=== PATIENT | female | born 1970 | race Caucasian/White ===

== ENCOUNTER 2017-03-11 08:07 | Emergency (ER) | payer OTHER ==
[~2017-03-11] VITALS: Ht 157.5 cm; Wt 65.0 kg
[2017-03-11] MEDS ORDERED: KETOROLAC TROMETHAMINE 30 MG/ML VIAL IVP ONE (08:45)
[2017-03-11] MEDS ORDERED: SODIUM CHLORIDE 0.9% 1,000 ML IV ONE (08:45)
[2017-03-11] MEDS ORDERED: BARIUM SULFATE 0.1% SUSPENSION 450 ML BOTTLE PO ONE (08:45)
[2017-03-11 09:06] LABS: BASOPHILS # (AUTO) 0.03 K/uL (0.00-0.20); BASOPHILS % (AUTO) 0.3 % (0.0-2.0); EOSINOPHILS # (AUTO) 0.11 K/uL (0.00-0.70); EOSINOPHILS % (AUTO) 0.94 % (1.0-6.0); HEMATOCRIT 39.4 % (36-46); HEMOGLOBIN 13.1 g/dL (12.0-16.0); LYMPHOCYTES # (AUTO) 1.6 K/uL (1.0-4.8); LYMPHOCYTES % (AUTO) 13.9 % (22.0-44.0); MEAN CORPUSCULAR HEMOGLOBIN 29.1 pg (26.0-34.0); MEAN CORPUSCULAR HGB CONC 33.2 G/dL (31.0-37.0); MEAN CORPUSCULAR VOLUME 88 fL (80-100); MONOCYTES # (AUTO) 0.9 K/uL (0.1-1.0); MONOCYTES % (AUTO) 8.3 % (2.0-9.0); NEUTROPHILS # (AUTO) 8.7 K/uL (1.8-7.7); NEUTROPHILS % (AUTO) 76.6 % (40.0-70.0); PLATELET COUNT (AUTO) 300 K/uL (150-450); RED CELL DISTRIBUTION WIDTH 14.1 % (11.5-14.5); WHITE BLOOD COUNT (AUTO) 11.3 K/uL (4.5-11.0)
[2017-03-11 09:13] LABS: APPEARANCE,URINE CLEAR (CLEAR); GLUCOSE, URINE (UA) NEGATIVE (NEGATIVE); KETONES,URINE NEGATIVE (NEGATIVE); LEUKOCYTE ESTERASE ,URINE TRACE (NEGATIVE); OCCULT BLOOD,URINE TRACE (NEGATIVE); PROTEIN,URINE NEGATIVE (NEGATIVE)
[2017-03-11 09:15] LABS: ADD UA MICROSCOPIC YES
[2017-03-11 09:18] LABS: CALCIUM, TOTAL 8.6 mg/dL (8.8-10.5); CREATININE 1.18 mg/dL (0.60-1.30); POTASSIUM 3.4 mmol/L (3.5-5.1)
[2017-03-11 09:19] LABS: RBC,URINE 0-2 /HPF (0-2); SQUAMOUS EPITHELIAL CELL,UR Few /LPF (None Seen); WBC,URINE 0-2 /HPF (0-5)
[2017-03-11 09:22] LABS: ALBUMIN 3.9 g/dL (3.4-5.0); TOTAL PROTEIN, SERUM 7.9 g/dL (6.4-8.2)
[2017-03-11] MEDS ORDERED: SODIUM CHLORIDE 0.9% 100 ML ONE (09:51)
[2017-03-11] MEDS ORDERED: IOVERSOL 320 MG/ML 100 ML VIAL ONE (09:51)
[2017-03-11 11:14] VITALS: BP 154/96
== END 2017-03-11 12:02 | disposition home or self-care (01) ==
LOC: EMS 08:09
DX: N20.9 Urinary calculus, unspecified (principal); N28.89 Other specified disorders of kidney and ureter
CPT/HCPCS: 36415; 74177; 80053; 81001; 83690; 84703; 85025; 96361; 96374; 99285; J1885; J7030; J7050; Q9967; Z7610

== ENCOUNTER 2017-06-15 13:11 | Emergency (ER) | payer OTHER ==
[~2017-06-15] VITALS: Ht 157.5 cm; Wt 60.0 kg
[2017-06-15] MEDS ORDERED: MAGN400T40 PO (13:20)
[2017-06-15] MEDS ORDERED: HYDR25TA PO (13:20)
[2017-06-15 14:54] LABS: BASOPHILS # (AUTO) 0.03 K/uL (0.00-0.20); BASOPHILS % (AUTO) 0.4 % (0.0-2.0); EOSINOPHILS # (AUTO) 0.21 K/uL (0.00-0.70); EOSINOPHILS % (AUTO) 2.91 % (1.0-6.0); HEMOGLOBIN 12.9 g/dL (12.0-16.0); LYMPHOCYTES # (AUTO) 1.9 K/uL (1.0-4.8); LYMPHOCYTES % (AUTO) 26.8 % (22.0-44.0); MEAN CORPUSCULAR HEMOGLOBIN 30.5 pg (26.0-34.0); MEAN CORPUSCULAR VOLUME 90 fL (80-100); MONOCYTES # (AUTO) 0.6 K/uL (0.1-1.0); MONOCYTES % (AUTO) 8.5 % (2.0-9.0); NEUTROPHILS # (AUTO) 4.5 K/uL (1.8-7.7); NEUTROPHILS % (AUTO) 61.5 % (40.0-70.0); PLATELET COUNT (AUTO) 388 K/uL (150-450); RED BLOOD CELL COUNT(AUTO) 4.24 MIL/uL (4.00-5.20); RED CELL DISTRIBUTION WIDTH 14.3 % (11.5-14.5); WHITE BLOOD COUNT (AUTO) 7.3 K/uL (4.5-11.0)
[2017-06-15 15:14] LABS: B-TYPE NATRIURETIC PEPTIDE 12 pg/mL (0-100)
[2017-06-15 15:16] LABS: ALANINE AMINOTRANSFERASE 32 U/L (12-78); ANION GAP 5 mmol/L (8-16); ASPARTATE AMINOTRANSFERASE 28 U/L (15-37); BILIRUBIN,TOTAL 0.4 mg/dL (0.1-1.0); CALCIUM, TOTAL 9.1 mg/dL (8.8-10.5); CARBON DIOXIDE 32 mmol/L (22-29); CHLORIDE 104 mmol/L (98-107); CREATINE KINASE, TOTAL 157 U/L (26-192); CREATININE 0.81 mg/dL (0.60-1.30); GLOMERULAR FILTR. RATE CALC > 60 mL/min (>60); SODIUM SERUM 141 mmol/L (136-145); UREA NITROGEN, BLOOD 10 mg/dL (7-18)
[2017-06-15 15:18] LABS: POTASSIUM 2.9 mmol/L (3.5-5.1)
[2017-06-15 15:39] LABS: APPEARANCE,URINE CLEAR (CLEAR); GLUCOSE, URINE (UA) NEGATIVE (NEGATIVE); KETONES,URINE NEGATIVE (NEGATIVE); LEUKOCYTE ESTERASE ,URINE NEGATIVE (NEGATIVE); OCCULT BLOOD,URINE NEGATIVE (NEGATIVE); PROTEIN,URINE NEGATIVE (NEGATIVE)
[2017-06-15 15:41] LABS: ADD UA MICROSCOPIC NO
[2017-06-15] MEDS ORDERED: POTASSIUM CHLORIDE 20 MEQ ER TABLET PO ONE (15:45)
[2017-06-15 16:30] VITALS: BP 138/70
[2017-06-15 16:44] LABS: CREATINE KINASE MB 1.1 ng/mL (0-5)
== END 2017-06-15 17:23 | disposition home or self-care (01) ==
LOC: EMS 13:16
DX: R42 Dizziness and giddiness (principal); E87.6 Hypokalemia; I10 Essential (primary) hypertension
CPT/HCPCS: 70450; 99285

== ENCOUNTER 2017-09-22 19:18 | Emergency (ER) | payer OTHER ==
[~2017-09-22] VITALS: Ht 157.5 cm; Wt 63.5 kg
[~2017-09-22 19:18] MED LIST: HYDR25TA PO; MAGN400T40 PO
[2017-09-22 20:12] LABS: BASOPHILS % (AUTO) 0.3 % (0.0-2.0); EOSINOPHILS % (AUTO) 2.5 % (1.0-6.0); HEMATOCRIT 38.3 % (36-46); HEMOGLOBIN 12.8 g/dL (12.0-16.0); LYMPHOCYTES # (AUTO) 2.8 K/uL (1.0-4.8); LYMPHOCYTES % (AUTO) 22.4 % (22.0-44.0); MEAN CORPUSCULAR HEMOGLOBIN 30.3 pg (26.0-34.0); MEAN CORPUSCULAR HGB CONC 33.5 G/dL (31.0-37.0); MEAN CORPUSCULAR VOLUME 91 fL (80-100); MONOCYTES # (AUTO) 0.9 K/uL (0.1-1.0); MONOCYTES % (AUTO) 7.3 % (2.0-9.0); NEUTROPHILS # (AUTO) 8.3 K/uL (1.8-7.7); NEUTROPHILS % (AUTO) 67.5 % (40.0-70.0); PLATELET COUNT (AUTO) 368 K/uL (150-450); RED BLOOD CELL COUNT(AUTO) 4.23 MIL/uL (4.00-5.20); RED CELL DISTRIBUTION WIDTH 14.2 % (11.5-14.5)
[2017-09-23] VITALS: BP 138/72
== END 2017-09-23 00:06 | disposition home or self-care (01) ==
LOC: EMS 19:20
DX: O20.0 Threatened abortion (principal); I10 Essential (primary) hypertension; Z3A.01 Less than 8 weeks gestation of pregnancy
CPT/HCPCS: 76801; 76817; 86901; 99285

== ENCOUNTER 2017-09-25 18:11 | Emergency (ER) | payer OTHER ==
[~2017-09-25] VITALS: Ht 160 cm; Wt 63.6 kg
[2017-09-25 19:39] LABS: BASOPHILS % (AUTO) 0.4 % (0.0-2.0); EOSINOPHILS % (AUTO) 2.4 % (1.0-6.0); HEMATOCRIT 39.6 % (36-46); HEMOGLOBIN 13.5 g/dL (12.0-16.0); LYMPHOCYTES # (AUTO) 2.8 K/uL (1.0-4.8); LYMPHOCYTES % (AUTO) 26.2 % (22.0-44.0); MEAN CORPUSCULAR HEMOGLOBIN 30.6 pg (26.0-34.0); MEAN CORPUSCULAR HGB CONC 34.1 G/dL (31.0-37.0); MEAN CORPUSCULAR VOLUME 90 fL (80-100); MONOCYTES # (AUTO) 0.8 K/uL (0.1-1.0); MONOCYTES % (AUTO) 7.2 % (2.0-9.0); NEUTROPHILS # (AUTO) 6.8 K/uL (1.8-7.7); NEUTROPHILS % (AUTO) 63.8 % (40.0-70.0); PLATELET COUNT (AUTO) 384 K/uL (150-450); RED BLOOD CELL COUNT(AUTO) 4.41 MIL/uL (4.00-5.20); RED CELL DISTRIBUTION WIDTH 13.9 % (11.5-14.5)
[2017-09-25 22:00] VITALS: BP 145/82
== END 2017-09-25 22:16 | disposition home or self-care (01) ==
LOC: EMS 18:14
DX: O03.9 Complete or unspecified spontaneous abortion without complication (principal); I10 Essential (primary) hypertension; Z3A.10 10 weeks gestation of pregnancy
CPT/HCPCS: 86901; 99284

== ENCOUNTER 2022-09-02 07:31 | Emergency (ER) | payer OTHER ==
[~2022-09-02] VITALS: Ht 162.6 cm; Wt 63.6 kg
[2022-09-02] MEDS ORDERED: SODIUM CHLORIDE 0.9% 250 ML IRRIG SOLUTION BOTTLE IRRIG ONE (08:15)
[2022-09-02] MEDS ORDERED: PERTUSS(ACELL),DIPH,TET VAC/PF 0.5 ML SYRINGE IM. ONE (08:15)
[2022-09-02] MEDS ORDERED: HYDROCODONE/ACETAMINOPHEN 5-325 MG TABLET PO ONE (08:15)
[2022-09-02 08:44] LABS: BASOPHILS % (AUTO) 0.1 % (0.0-2.0); EOSINOPHILS % (AUTO) 1.2 % (1.0-6.0); HEMATOCRIT 41.2 % (36-46); HEMOGLOBIN 13.7 g/dL (12.0-16.0); LYMPHOCYTES # (AUTO) 1.9 K/uL (1.0-4.8); LYMPHOCYTES % (AUTO) 20.9 % (22.0-44.0); MEAN CORPUSCULAR HEMOGLOBIN 30.3 pg (26.0-34.0); MEAN CORPUSCULAR HGB CONC 33.3 G/dL (31.0-37.0); MEAN CORPUSCULAR VOLUME 91 fL (80-100); MONOCYTES # (AUTO) 0.6 K/uL (0.1-1.0); MONOCYTES % (AUTO) 6.4 % (2.0-9.0); NEUTROPHILS # (AUTO) 6.6 K/uL (1.8-7.7); NEUTROPHILS % (AUTO) 71.4 % (40.0-70.0); PLATELET COUNT (AUTO) 315 K/uL (150-450); RED BLOOD CELL COUNT(AUTO) 4.53 MIL/uL (4.00-5.20); RED CELL DISTRIBUTION WIDTH 13.8 % (11.5-14.5)
[2022-09-02 08:53] LABS: ANION GAP 6 mmol/L (8-16); CALCIUM, TOTAL 8.9 mg/dL (8.8-10.5); CARBON DIOXIDE 27 mmol/L (22-29); CHLORIDE 104 mmol/L (98-107); CREATININE 0.76 mg/dL (0.60-1.30); GLOMERULAR FILTR. RATE CALC > 60 mL/min (>60); GLUCOSE,RANDOM 105 mg/dL (70-110); POTASSIUM 3.9 mmol/L (3.5-5.1); SODIUM SERUM 137 mmol/L (136-145); UREA NITROGEN, BLOOD 16 mg/dL (7-18)
[2022-09-02 08:57] LABS: INR 0.9 (0.9-1.1); PROTHROMBIN TIME 9.8 SEC (9.4-11.6)
[2022-09-02 08:59] LABS: ALANINE AMINOTRANSFERASE 57 U/L (12-78); ALBUMIN 3.9 g/dL (3.4-5.0); ALKALINE PHOSPHATASE 137 U/L (46-116); ASPARTATE AMINOTRANSFERASE 29 U/L (15-37); BILIRUBIN,TOTAL 0.9 mg/dL (0.1-1.0); CREATINE KINASE, TOTAL ONLY 73 U/L (26-192); TOTAL PROTEIN, SERUM 7.7 g/dL (6.4-8.2)
[2022-09-02 09:30] LABS: APPEARANCE,URINE CLEAR (CLEAR); BILIRUBIN,URINE NEGATIVE (NEGATIVE); GLUCOSE, URINE (UA) NEGATIVE (NEGATIVE); KETONES,URINE NEGATIVE (NEGATIVE); LEUKOCYTE ESTERASE ,URINE NEGATIVE (NEGATIVE); NITRATE,URINE NEGATIVE (NEGATIVE); OCCULT BLOOD,URINE TRACE (NEGATIVE); PROTEIN,URINE NEGATIVE (NEGATIVE); SPECIFIC GRAVITIY, URINE 1.014 (1.003-1.030); UROBILINOGEN,URINE <=1.0 mg/dL (<=1.0)
[2022-09-02 09:32] LABS: BACTERIA,URINE None Seen /HPF (None Seen); RBC,URINE 0-2 /HPF (0-2); WBC,URINE None Seen /HPF (0-5)
[2022-09-02] MEDS ORDERED: HYDROCHLOROTHIAZIDE 25 MG TABLET PO ONE (12:15)
[2022-09-02] MEDS ORDERED: CEPH-558 PO (12:18)
[2022-09-02] MEDS ORDERED: IBUP-2070 PO (12:18)
[2022-09-02 12:37] VITALS: BP 154/91
== END 2022-09-02 12:57 | disposition home or self-care (01) ==
LOC: EMS 07:35
DX: S01.01XA Laceration without foreign body of scalp, initial encounter (principal); S60.222A Contusion of left hand, initial encounter; S60.221A Contusion of right hand, initial encounter; R55 Syncope and collapse; I10 Essential (primary) hypertension; E78.00 Pure hypercholesterolemia, unspecified; W18.39XA Other fall on same level, initial encounter; Y93.89 Activity, other specified; Y92.89 Other specified places as the place of occurrence of the external cause; Y99.8 Other external cause status
CPT/HCPCS: 12002; 70450; 80053; 81001; 82550; 84484; 85025; 85610; 85730; 90471; 90715; 93005; 99285

== ENCOUNTER 2022-09-15 13:43 | Emergency (ER) | payer OTHER ==
[~2022-09-15] VITALS: Ht 157.5 cm; Wt 68.2 kg
[~2022-09-15 13:43] MED LIST changes: +CEPH-558 PO; -HYDR25TA PO; +IBUP-2070 PO; -MAGN400T40 PO
[2022-09-15 13:55] VITALS: BP 146/76
[2022-09-15] MEDS ORDERED: HYDR-4723 PO (16:13)
== END 2022-09-15 16:46 | disposition home or self-care (01) ==
LOC: EMS 13:43
DX: M25.572 Pain in left ankle and joints of left foot (principal); M25.571 Pain in right ankle and joints of right foot; E78.00 Pure hypercholesterolemia, unspecified; I10 Essential (primary) hypertension; Z98.890 Other specified postprocedural states
CPT/HCPCS: 99283

== ENCOUNTER 2025-01-17 13:34 | Emergency (ER) | payer BC, OTHER ==
[~2025-01-17] VITALS: Ht 157.5 cm; Wt 66.3 kg
[~2025-01-17 13:34] MED LIST changes: +IBUP-1492 PO; -IBUP-2070 PO
[2025-01-17 13:55] VITALS: TEMP 97.5
[2025-01-17 16:16] VITALS: BP 135/70; PULSE 69; RESP 16; O2SAT 96
== END 2025-01-17 16:17 | disposition home or self-care (01) ==
LOC: EMS 13:42
DX: I10 Essential (primary) hypertension (principal); E78.00 Pure hypercholesterolemia, unspecified
CPT/HCPCS: 99281; Z7502